=== PATIENT | male | born 1985 | race Caucasian/White ===

== ENCOUNTER → 2016-06-11 | Outpatient (CLI) | payer BC, OTHER ==
[2016-06-11 12:40] LABS: BASO % 0.3 %; BASO ABS # 0.02 K/uL (0-0.2); COMPLETE YES; HEMATOCRIT 43.1 % (42-52); IG% 0.2 %; LYMPH % 27.2 %; LYMPH ABS # 1.58 K/uL (1.2-3.4); MEAN CORPUSCULAR HEMOGLOBIN 28.9 pg (25-34); MEAN CORPUSCULAR HGB CONC 33.6 g/dl (32-36); MEAN PLATELET VOLUME 11.4 fL (7.4-10.4); MONO % 10.2 %; NEUT % 61.1 %; PLATELET COUNT 187 K/uL (130-400); RED BLOOD COUNT 5.01 M/uL (4.7-6.1)
[2016-06-11 13:21] LABS: ALT/SGPT 37 U/L (12-78); BLOOD UREA NITROGEN 19 mg/dl (7-18); BUN/CREATININE RATIO 28.7 (10-20); CALCIUM 8.6 mg/dl (8.5-10.1); CARBON DIOXIDE 30 mmol/L (21-32); CHLORIDE 106 mmol/L (98-107); CHOLESTEROL 126 mg/dl (0-200); CREATININE 0.67 mg/dl (0.60-1.40); GLUCOSE 93 mg/dl (70-99); POTASSIUM 3.7 mmol/L (3.5-5.1); SODIUM 141 mmol/L (136-145); TRIGLYCERIDES 83 mg/dl (0-150); VERY LOW DENSITY LIPOPROT CALC 17 mg/dl
[2016-06-11 13:24] LABS: ALB/GLOB RATIO 1.1 (0.9-2); ALKALINE PHOSPHATASE 60 U/L (45-117); AST/SGOT 17 U/L (15-37); CHOLESTEROL/HDL RATIO 2.7; HDL CHOLESTEROL 46 mg/dl; LDL CHOLESTEROL CALCULATED 63 mg/dl
== END | disposition home or self-care (01) ==
LOC: C.LAB 10:13
PROVIDERS: ATTEND Nurse Practitioner Family
DX: Z00.00 Encounter for general adult medical examination without abnormal findings (principal); N31.9 Neuromuscular dysfunction of bladder, unspecified; G80.9 Cerebral palsy, unspecified; Q05.9 Spina bifida, unspecified; Z13.220 Encounter for screening for lipoid disorders

== ENCOUNTER → 2017-01-16 | Outpatient (CLI) | payer OTHER ==
--- NOTE | 2017-01-16 12:03 | DIAGNOSTIC IMAGING REPORT ---
RENAL ULTRASOUND CLINICAL HISTORY: Neurogenic bladder. Urinary incontinence. COMPARISON STUDY: Renal ultrasound January 16, 2016. TECHNIQUE: Sonography of the kidneys and the urinary bladder was performed. FINDINGS: Exam is compromised by suboptimal penetration. The right kidney measures 10.5 x 5 x 4.4 cm and the left measures 11.4 x 6.4 x 5.1 cm. There is no hydronephrosis. Renal echogenicity, size and cortical thickness are normal. As before, the bladder wall is irregular and trabeculated. This is unchanged. IMPRESSION: 1. Normal sonographic appearance of the kidneys. No hydronephrosis. 2. No change in the irregular trabeculated bladder wall consistent with the history of neurogenic bladder. Electronically signed by: Sami Smith M.D. 01/16/2017 12:02 PM Dictated Date/Time: 01/16/2017 12:00 PM
== END | disposition home or self-care (01) ==
LOC: C.ULTR 11:27
PROVIDERS: ATTEND Urology
DX: R32 Unspecified urinary incontinence (principal)

== ENCOUNTER → 2017-05-01 | Outpatient (CLI) | payer OTHER | END | disposition home or self-care (01) | LOC: C.LAB 17:08 | PROVIDERS: ATTEND Nurse Practitioner Family | DX: L03.115 Cellulitis of right lower limb (principal) ==

== ENCOUNTER → 2017-06-25 | Outpatient (CLI) | payer BC, OTHER ==
[2017-06-25 13:07] LABS: ALBUMIN 3.8 gm/dl (3.4-5.0); ALT/SGPT 48 U/L (12-78); AST/SGOT 21 U/L (15-37); BLOOD UREA NITROGEN 24 mg/dl (7-18); CALCIUM 8.7 mg/dl (8.5-10.1); CARBON DIOXIDE 29 mmol/L (21-32); CREATININE 0.78 mg/dl (0.60-1.40); GLUCOSE 87 mg/dl (70-99); POTASSIUM 3.7 mmol/L (3.5-5.1); SODIUM 137 mmol/L (136-145)
[2017-06-25 13:10] LABS: ALKALINE PHOSPHATASE 63 U/L (45-117); CHOLESTEROL 138 mg/dl (0-200); LDL CHOLESTEROL CALCULATED 74 mg/dl; TOTAL PROTEIN 7.7 gm/dl (6.4-8.2)
== END | disposition home or self-care (01) ==
LOC: C.LAB 10:27
PROVIDERS: ATTEND Nurse Practitioner Family
DX: Z00.00 Encounter for general adult medical examination without abnormal findings (principal); Z13.1 Encounter for screening for diabetes mellitus; Z13.220 Encounter for screening for lipoid disorders

== ENCOUNTER 2018-10-11 23:35 | Inpatient (IN) ==
[2018-10-12 00:02] LABS: Basophils # (auto) 0.03 K/uL (0-0.2); Basophils % (auto) 0.3 %; Eosinophils # (auto) 0.01 K/uL (0-0.5); Eosinophils % (auto) 0.1 %; Hematocrit (blood only) 44.5 % (42-52); Hemoglobin 15.6 g/dL (14.0-18.0); Immature Granulocytes # (auto) 0.03 K/uL (0.00-0.02); Immature Granulocytes % (auto) 0.3 %; Lymphocytes % (auto) 12.8 %; Mean Corpuscular Hgb Conc 35.1 g/dL (32-36); Mean Corpuscular Volume 85.4 fL (80-100); Mean Platelet Volume 11.5 fL (7.4-10.4); Monocytes # (auto) 0.41 K/uL (0.11-0.59); Monocytes % (auto) 3.5 %; Neutrophils # (auto) 9.77 K/uL (1.4-6.5); Platelet Count 218 K/uL (130-400); RDW Coefficient of Variation 13.6 % (11.5-14.5); RDW Standard Deviation 42.4 fL (36.4-46.3); Red Blood Count 5.21 M/uL (4.7-6.1); White Blood Count 11.75 K/uL (4.8-10.8)
[2018-10-12 00:17] LABS: D Dimer < 190 ug/L FEU (0-500)
[2018-10-12 00:19] LABS: Alanine Aminotransferase 39 U/L (12-78); Albumin Level 4.4 gm/dl (3.4-5.0); Aspartate Aminotransferase 20 U/L (15-37); BUN Creatinine Ratio 21.2 (10-20); Bilirubin Direct < 0.1 mg/dl (0-0.2); Blood Urea Nitrogen 17 mg/dl (7-18); Calcium 8.9 mg/dl (8.5-10.1); Carbon Dioxide 30 mmol/L (21-32); Chloride 104 mmol/L (98-107); Est GFR (African American) 134.7; Est GFR (Non-African American) 116.2; Glucose 107 mg/dl (70-99); Potassium 3.6 mmol/L (3.5-5.1); Sodium 141 mmol/L (136-145)
[2018-10-12 00:24] LABS: Alkaline Phosphatase 68 U/L (45-117); Bilirubin,Total 0.2 mg/dl (0.2-1); Total Protein 8.3 gm/dl (6.4-8.2); Troponin I < 0.015 ng/ml (0-0.045)
[2018-10-12] MEDS ORDERED: MoRPHine SULFATE 10 MG/ML CARP/VIAL IV STA (00:37)
[2018-10-12 01:17] LABS: Appearance Urine Cloudy (Clear); Bacteria Urine Automated Negative (Negative); Bilirubin Urine Negative (Negative); Blood Urine Negative (Negative); Color Urine Yellow; Epithelial Cell Urine Auto 20-30 /lpf (0-5); Glucose Urine UA Negative (Negative); Ketones Urine 1+ (Negative); Leukocyte Esterase Urine 1+ (Negative); Nitrite Urine Negative (Negative); RBC Urine Automated 0-4 /hpf (0-4); Specific Gravity Urine 1.026 (1.000-1.030); Urobilinogen Urine Negative (Negative)
[2018-10-12 01:31] LABS: Protein Urine Negative (Negative)
[2018-10-12] MEDS ORDERED: IOVERSOL 100ml IV PRN (01:51)
--- NOTE | 2018-10-12 03:50 | Emergency Department Note ---
Entered by Nacho Zhang acting as a scribe for Brody Alvarez MD ED Provider Note Name: Jack Spring Age: 32, male Arrives Via: EMS Informant: Patient CC: Abdominal pain HPI: The patient is a 32 year old male who presents to the emergency department with complaints of constant RUQ abdominal pain beginning at 2030 tonight. The patient states that his abdominal pain started randomly tonight and radiated into his center chest. He notes that his chest pain felt like a burning, but he reports that his chest pain has since resolved. He also complains of vomiting and some dyspnea. The patient states that his abdominal pain causes him pain when he breathes in. He notes that he was given 100mcg of Fentanyl and 15mg of Toradol in the ambulance which relieved some of his symptoms. He rates his current pain as a 5/10. He denies any fever, chills, back pain, headache, neck pain, shoulder pain, cough, and recent falls. He reports that he has a history of spina bifida and reflux, but he states that he has not had any recent UTIs. He denies any cigarettes and drug use, but he notes that he occasionally drinks alcohol. ROS: See above HPI for pertinent positives & negatives. A total of 10 systems reviewed and were otherwise negative. Past Medical History: Spina bifida, reflux Past Surgical History: None Family History: None Social History: Unemployed, does not smoke cigarettes, does not use drugs, occasionally drinks alcohol Home Medications: None Allergies: Latex Physical: Vitals: BP 176/98, Pulse 77, Resp 16, Temp 98.2 F, O2 Sat 96 Exam: GENERAL: Patient is well appearing and in minimal distress. EYES: No scleral icterus, unremarkable pupils. ENT: Mucous membranes moist, no nasal congestion. NECK: No masses appreciated, no meningismus, trachea is midline. RESPIRATORY: No dyspnea. Clear to auscultation and equal bilaterally. No wheeze, no rhonchi. CARDIOVASCULAR: Regular rate and rhythm. No murmurs, rubs, gallops appreciated. GASTROINTESTINAL: Abdomen soft, no peritonitis. Bowel sounds positive. No masses appreciated. Mild RUQ tenderness, upper right abdominal scar from childhood consistent with possible pyloric stenosis surgery. BACK: No midline tenderness, no CVA tenderness EXTREMITIES: No cyanosis, no edema, minimal movement of legs, normal movement of the upper extremities. NEUROLOGIC: Alert and oriented, minimal movement of legs consistent with spina bifida, no sensation in legs, upper extremities are normal. SKIN: No rash, no jaundice, no diaphoresis. ED Course: Prior Medical Record, Triage/Nursing Notes, Medications, Allergies reviewed by Me 2340: The patient was evaluated in room B11. A complete history and physical exam was performed. 0020: I reevaluated and updated the patient. He states that he is having more pain, but he declines pain medication at this time. His mother called in and nursing spoke to her. The patients mother notes that she and the patients father are on their way from vacation and will arrive in 4.5 hours. 0037: I rechecked the patient. [place] is back [place]. He notes that his pain is starting to increase again. 0127: I reevaluated and updated the patient. He still has some RUQ pain and is agreeable to CT scan. 0247: I spoke on the phone with the patient's mother per his request. The patient is still having pain but denies any medication. 0253: Dr. Leach - Hospitalist, [facility], was paged. 0257: Upon reevaluation, the patient is stable. I discussed the findings and the treatment plan with the patient. He expresses agreement and understanding. I spoke with Dr. Leach of the [facility] Hospitalist Service. The patient will be evaluated for further management. Vital Signs: reviewed and remarkable for wnl Labs: Reviewed and remarkable for wnl Interventions: saline lock, fentanyl 100mcg IV, Morphine 8mg IV, NSS bolus Imaging: Radiology results as stated below per my review and the radiologist's interpretation: US GALLBLADDER: Pancreas obscured by bowel gas. Diffuse increased echogenicity of the liver can be seen with hepatic steatosis or other hepatocellular disease. Main portal vein is patent. Mobile appearing gallstones measuring around 9mm nondistended gallbladder without pericholecystic free fluid. Wall measures 2mm. Report of a negative sonographic Sumner sign. No right hydronephrosis or free fluid seen. CBD 5mm. Radiologist: Ridge Dacosta MD. CT ABDOMEN & PELVIS With Contrast: No prior CT. Comparison to recent ultrasound of the gallbladder. No appendicitis. Portion of the normal appendix seen image 55/2. Cholelithiasis. Gallbladder is distended. If there is persistent concern for cholecystitis, recommend correlation with HIDA, as indicated. Bladder has a thick-walled a ppearance. Some of this may relate to underdistention. Correlate for any evidence of cystitis. Suspected hepatic steatosis. No evidence for acute pancreatitis. Peritoneal catheter. Appears contained within the peritoneal cavity without percutaneous component. Portions of bowel including the distal c olon underdistended limiting evaluation for mural thickening. Moderate stool burden overall. No bowel obstruction. No perienteric inflammatory change. Postop changes spine/chronic skeletal deformities and other nonemergent/incidentals. Radiologist: Trenton Pond MD. EKG: Per My Interpretation: Indication Chest Pain: NSR 80 bpm qtc 442 without ectopy nor ischemia. Poor baseline. no previous for comparison. Consults: 0257: I reviewed the patient's case with Dr. Leach - Hospitalist, [facility]. He will evaluate the patient for further management. Blood pressure: Elevated - [place] to be Situation. Disposition: Hospitalization Differentials: Differential: Cholecystitis, Gallbladder disfunction, Hepatic Disfunction, Gastritis/PUD, Pancreatitis, ACS, Aortic Pathology, amongst other pathologies entertained. Medical Decision Makin yr old male with spina bifida arrives with acute RUQ pain and vomiting. Notes substernal cp s/p vomiting which has resolved by time of arrival. Exam with RUQ TTP. US with stones in GB without clear other issue. Continued pain thus CT done which shows normal appendix but distended gallbladder. Given persistent pain, stones in gallbladder and gallbladder distention likely would seem to have GB dysfunction. Reviewed with hospitalist who will bring in for furhter evaluation/management. With normal EKG/normal Trop and no further GB seems unlikely ACS. No PE symptoms. Aorta OK on CT. Impression: Dysfunctional gallbladder Brody Alvarez MD The scribe's documentation has been prepared under my direction and personally reviewed by me in its entirety. I confirm that the note above accurately reflects all work, treatment, procedures, and medical decision making performed by me. Impression & Plan Dysfunctional gallbladder Past Med/Surg History Medical History Neurogenic bladder (Acute) Spina bifida (Acute) Urinary incontinence (Acute) GERD (gastroesophageal reflux disease) Family History Other No significant family history Social History current occupational status: unemployed Feels Safe at Home: Yes Smoking Status: Never smoker Hx Alcohol Use: Yes Hx Substance Use: No Results & Data Vital Signs Vital Signs - 24 hr 10/11/18 23:41 10/12/18 00:42 10/12/18 01:01 Temperature 36.8 C Temperature Source Oral Sepsis Recent Fever Within 48 Hours No Sepsis Action Taken by Nursing No Action Required Pulse Rate 77 Pulse Rate [Right] 95 H 91 H Pulse Rhythm Regular Pulse Rhythm [Right] Pulse Strength Normal Pulse Strength [Right] Normal Respiratory Rate 16 16 18 Respiratory Effort / Characteristics Non-Labored Spontaneous Non-Labored Spontaneous Respiratory Depth Normal Normal Blood Pressure 176/98 H Blood Pressure [Right Arm] 170/95 H 151/85 H Blood Pressure Mean 124 Blood Pressure Mean [Right Arm] 120 107 Blood Pressure Position Lying Blood Pressure Position [Right Arm] Sitting Pulse Oximetry 96 98 95 Oxygen Delivery Method Room Air Room Air Room Air 10/12/18 01:53 10/12/18 02:50 Temperature Temperature Source Sepsis Recent Fever Within 48 Hours Sepsis Action Taken by Nursing Pulse Rate Pulse Rate [Right] 90 90 Pulse Rhythm Pulse Rhythm [Right] Regular Regular Pulse Strength Pulse Strength [Right] Normal Normal Respiratory Rate 18 16 Respiratory Effort / Characteristics Non-Labored Spontaneous Non-Labored Spontaneous Respiratory Depth Normal Normal Blood Pressure Blood Pressure [Right Arm] 151/85 H 138/95 Blood Pressure Mean Blood Pressure Mean [Right Arm] 107 109 Blood Pressure Position Blood Pressure Position [Right Arm] Sitting Sitting Pulse Oximetry 98 99 Oxygen Delivery Method Room Air Room Air Home Medications Current Medication List: was personally reviewed by me Laboratory Data Attestation: I reviewed the patient's lab results. Result diagrams: 10/11/18 23:05 10/11/18 23:05 Lab Results 10/11/18 10/11/18 10/11/18 Range/Units 23:05 23:05 23:05 WBC 11.75 H (4.8-10.8) K/uL RBC 5.21 (4.7-6.1) M/uL Hgb 15.6 (14.0-18.0) g/dL Hct 44.5 (42-52) % MCV 85.4 (80-100) fL MCH 29.9 (25-34) pg MCHC 35.1 (32-36) g/dL RDW Std Deviation 42.4 (36.4-46.3) fL RDW Coeff of Sumi 13.6 (11.5-14.5) % Plt Count 218 (130-400) K/uL MPV 11.5 H (7.4-10.4) fL Immature Gran % (Auto) 0.3 % Neut % (Auto) 83.0 % Lymph % (Auto) 12.8 % [place] % (Auto) 3.5 % Eos % (Auto) 0.1 % Baso % (Auto) 0.3 % Immature Gran # (Auto) 0.03 H (0.00-0.02) K/uL Neut # (Auto) 9.77 H (1.4-6.5) K/uL Lymph # (Auto) 1.50 (1.2-3.4) K/uL [place] # (Auto) 0.41 (0.11-0.59) K/uL Eos # (Auto) 0.01 (0-0.5) K/uL Baso # (Auto) 0.03 (0-0.2) K/uL D-Dimer < 190 (0-500) ug/L FEU Sodium 141 (136-145) mmol/L Potassium 3.6 (3.5-5.1) mmol/L Chloride 104 (98-107) mmol/L Carbon Dioxide 30 (21-32) mmol/L Anion Gap 7.0 (3-11) BUN 17 (7-18) mg/dl Creatinine 0.82 (0.6-1.4) mg/dl Est Cr Clr Drug Dosing Not Reportable Est GFR ( Amer) 134.7 Est GFR (Non-Af Amer) 116.2 BUN/Creatinine Ratio 21.2 H (10-20) Glucose 107 H (70-99) mg/dl Calcium 8.9 (8.5-10.1) mg/dl Total Bilirubin 0.2 (0.2-1) mg/dl Direct Bilirubin < 0.1 (0-0.2) mg/dl AST 20 (15-37) U/L ALT 39 (12-78) U/L Alkaline Phosphatase 68 (45-117) U/L Troponin I < 0.015 (0-0.045) ng/ml Total Protein 8.3 H (6.4-8.2) gm/dl Albumin 4.4 (3.4-5.0) gm/dl Lipase 153 (73-393) U/L Urine Color Urine Appearance (Clear) Urine pH (4.5-7.5) Ur Specific [place] (1.000-1.030) Urine Protein (Negative) Urine Glucose (UA) (Negative) Urine Ketones (Negative) Urine Blood (Negative) Urine Nitrite (Negative) Urine Bilirubin (Negative) Urine Urobilinogen (Negative) Ur Leukocyte Esterase (Negative) Urine WBC (Auto) (0-5) /hpf Urine RBC (Auto) (0-4) /hpf U Hyaline Cast (Auto) (0-5) /lpf U Epithel Cells (Auto) (0-5) /lpf Urine Bacteria (Auto) (Negative) 10/12/18 Range/Units 01:00 WBC (4.8-10.8) K/uL RBC (4.7-6.1) M/uL Hgb (14.0-18.0) g/dL Hct (42-52) % MCV (80-100) fL MCH (25-34) pg MCHC (32-36) g/dL RDW Std Deviation (36.4-46.3) fL RDW Coeff of Sumi (11.5-14.5) % Plt Count (130-400) K/uL MPV (7.4-10.4) fL Immature Gran % (Auto) % Neut % (Auto) % Lymph % (Auto) % [place] % (Auto) % Eos % (Auto) % Baso % (Auto) % Immature Gran # (Auto) (0.00-0.02) K/uL Neut # (Auto) (1.4-6.5) K/uL Lymph # (Auto) (1.2-3.4) K/uL [place] # (Auto) (0.11-0.59) K/uL Eos # (Auto) (0-0.5) K/uL Baso # (Auto) (0-0.2) K/uL D-Dimer (0-500) ug/L FEU Sodium (136-145) mmol/L Potassium (3.5-5.1) mmol/L Chloride (98-107) mmol/L Carbon Dioxide (21-32) mmol/L Anion Gap (3-11) BUN (7-18) mg/dl Creatinine (0.6-1.4) mg/dl Est Cr Clr Drug Dosing Est GFR ( Amer) Est GFR (Non-Af Amer) BUN/Creatinine Ratio (10-20) Glucose (70-99) mg/dl Calcium (8.5-10.1) mg/dl Total Bilirubin (0.2-1) mg/dl Direct Bilirubin (0-0.2) mg/dl AST (15-37) U/L ALT (12-78) U/L Alkaline Phosphatase (45-117) U/L Troponin I (0-0.045) ng/ml Total Protein (6.4-8.2) gm/dl Albumin (3.4-5.0) gm/dl Lipase (73-393) U/L Urine Color Yellow Urine Appearance Cloudy A (Clear) Urine pH 8.0 H (4.5-7.5) Ur Specific [place] 1.026 (1.000-1.030) Urine Protein Negative (Negative) Urine Glucose (UA) Negative (Negative) Urine Ketones 1+ H (Negative) Urine Blood Negative (Negative) Urine Nitrite Negative (Negative) Urine Bilirubin Negative (Negative) Urine Urobilinogen Negative (Negative) Ur Leukocyte Esterase 1+ H (Negative) Urine WBC (Auto) 10-30 H (0-5) /hpf Urine RBC (Auto) 0-4 (0-4) /hpf U Hyaline Cast (Auto) 1-5 (0-5) /lpf U Epithel Cells (Auto) 20-30 H (0-5) /lpf Urine Bacteria (Auto) Negative (Negative) Administered Medications Ioversol (Optiray 320 100ml) 94 ml IV ONCE PRN PRN Reason: Interaction Checking Stop: 10/16/18 01:50 Last Admin: 10/12/18 01:52 Dose: 94 ml Documented by: [id number] Discontinued Medications Morphine Sulfate (Morphine Sulfate) 8 mg IV NOW STA Stop: 10/12/18 00:38 Last Admin: 10/12/18 00:42 Dose: 8 mg Documented by: [id number] Discharge Plan Visit Data Chief Complaint: Abdominal Pain Stated Complaint: ABDOMINAL PAIN ED Provider: Brody Alvarez Discharge Problem: Dysfunctional gallbladder Patient Disposition: Being Evaluated by Hospitalist Forms Stand Alone Forms: Call Back Authorization, [facility] [place] Prescriptions Prescriptions: No Action miscellaneous medical supply pad .ROUTE .MEDSUPPLY Qty: 1 RF: 0 Referrals Referrals: Danny Truong III, [place] [Primary Care Provider] - The scribe's documentation has been prepared under my direction and personally reviewed by me in its entirety. I confirm that the note above accurately reflects all work, treatment, procedures, and medical decision making performed by me.
--- NOTE | 2018-10-12 04:12 | History & Physical Report ---
Date of Service October 12, 2018 Assessment & Plan (1) RUQ abdominal pain: 32-year-old male was admitted on 12 October 2018 for right upper quadrant abdominal pain and gallstones. Abdominal pain: Acute onset around 2029 on evening of admission. Describes concurrent RUQ and feeling of acid reflux. During this H&P, symptoms virtually resolved after pain medication. Presently non-tender throughout abdomen. Unclear if this is all gallbladder related versus some mild exacerbation of GERD. - In ED, afebrile, not tachycardic, moderately hypertensive, with normal room SpO2. WBC 11. Electrolytes, LFTs, lipase, and troponin normal. EKG is NSR rate 80. UA is dirty specimen. Urine culture sent. Overnight read of gallbladder ultrasound notes a mobile appearing 9 mm gallstone with non- distended gallbladder, no pericholecystic free fluid, GB wall 2 mm and CBD 5 mm. Overnight read of CT a/p with contrast notes distended gallbladder and cholelithiasis. - In ED, pain treated with morphine. - Will consult GI for further evaluation and consideration of HIDA scan. Tylenol and Zofran as needed for pain and nausea control. We will try to avoid further narcotics for now. Incidental CT a/p with contrast findings: - Suspected hepatic steatosis. - Peritoneal catheter. - Moderate stool burden overall without obstruction. - Chronic skeletal deformities. Ongoing medical issues: - Spina bifida: Wheelchair dependent. - GERD: Takes Tums as needed at home. - Neurogenic bladder, urinary incontinence. Code status: Full code. Diet: Full liquid diet. Likely will need to be n.p.o. for at least 4 hours before a HIDA scan. DVT prophy: Lovenox. PT/OT: Deferred. Disbo: Admit to MedSurg. (2) Spina bifida: (3) GERD (gastroesophageal reflux disease): (4) Neurogenic bladder: (5) Urinary incontinence: History of Present Illness Primary Care Provider: Danny Truong III, LLOY[place] 32-year-old male presents to ED via EMS stating that he had the acute onset of RUQ regional pain beginning around 2029 this evening. He notes concurrent feeling of acid reflux in the center of his chest, bad taste in his mouth, as well as nausea and two episodes of non-bloody emesis. He denies any diarrhea and says he has regular bowel movements. He also denies any previous history of similar abdominal pains or known intestinal/gallbladder issues. At the time of this H&P, patient has received fentanyl 100 mcg, Toradol 15 mg, and morphine 8 mg IV. He presently states he no longer has any abdominal pain but does have some residual "soreness" [pointing to] in his RUQ. Denies any present nausea as well and says that he is hungry. Otherwise denies any other acute concerns. - Past medical history includes spina bifida and reflux. - Past surgical history includes spinal fusion, CEMENT SACK BREAKER shunt and shunt revision, hip surgery, pyloric stenosis repair as child. - Social history includes denying tobacco use. Occasional alcohol use. Denies illicit drug use. Unemployed. Allergies Allergy/AdvReac Type Severity Reaction Status Date / Time Latex Exam Gloves MISC Allergy Severe Unknown Uncoded 10/12/18 00:29 Latex2 -Systemic Allergic Allergy Unknown Could not Uncoded 10/12/18 00:29 Response breath Home Medications Home Medications Medication Instructions Recorded Confirmed Type miscellaneous medical supply pads #1 ea 10/06/18 10/12/18 Rx Past Med/Surg History Medical History Neurogenic bladder (Acute) Spina bifida (Acute) Urinary incontinence (Acute) GERD (gastroesophageal reflux disease) Surgical History S/P CEMENT SACK BREAKER shunt Family History Other No significant family history Social History Preferred Language: Turkish Communication Ability: Effective Molder Required: No Beliefs That Will Affect Care: None Current Living Situation: Parent current occupational status: unemployed Feels Safe at Home: Yes Safety Concerns: Feels Safe At This Time Smoking Status: Never smoker Hx Alcohol Use: Yes Alcohol type: beer, wine and hard liquor Hx Substance Use: No Review of Systems Review of Systems: Constitutional: Denies fevers, chills, focal weakness Eyes: Denies any visual loss or diplopia ENT: Denies any ear/nose/throat pain or difficulty speaking or swallowing Respiratory: Denies any dyspnea, cough, hemoptysis Cardiovascular: Denies any chest pain or feeling of edema Gastrointestinal: Positive abdominal pain and nausea/vomiting. Denies diarrhea. Musculoskeletal: Denies any acute extremity pains, myalgias, or focal weakness (but chronic spina bifida issues). Skin: Denies any known acute rashes or lesions Neuro: Denies any headache, acute focal weakness or numbness, or difficulties with speech or swallow. Physical Exam Physical Exam: GENERAL: Awake, alert, well-appearing, in no acute distress. HENT: Normocephalic, atraumatic. Oropharynx unremarkable. EYES: Normal conjunctiva. Sclera non-icteric. NECK: Inspection normal. Supple and full ROM. No nuchal rigidity. CARDIAC: +S1S2 RRR, no murmurs. RESPIRATORY: Clear to auscultation. No wheezes or rales. Normal respiratory effort. GI: +BS, soft, non-distended. No tenderness to palpation throughout, including RUQ. No rebound or guarding. Well-healed right upper abdominal scar (related to childhood pyloric stenosis surgery) NEURO / EXTREMITIES: No pedal edema. Limited movement and sensation of the bilateral lower extremities. Full and easy movement of bilateral upper extremities. Extensive surgical scarring of the lumbosacral spinal region. Results & Data Vital Signs (Past 12 Hours) Vital Signs Temp Pulse Pulse Resp BP BP Pulse Ox 10/12/18 02:50 90 16 138/95 99 10/12/18 01:53 90 18 151/85 H 98 10/12/18 01:01 91 H 18 151/85 H 95 10/12/18 00:42 95 H 16 170/95 H 98 10/11/18 23:41 36.8 C 77 16 176/98 H 96 Laboratory Results Laboratory Results WBC 11.75 K/uL (4.8-10.8) H 10/11/18 23:05 RBC 5.21 M/uL (4.7-6.1) 10/11/18 23:05 Hgb 15.6 g/dL (14.0-18.0) 10/11/18 23:05 Hct 44.5 % (42-52) 10/11/18 23:05 MCV 85.4 fL (80-100) 10/11/18 23:05 MCH 29.9 pg (25-34) 10/11/18 23:05 MCHC 35.1 g/dL (32-36) 10/11/18 23:05 RDW Std Deviation 42.4 fL (36.4-46.3) 10/11/18 23:05 RDW Coeff of Sumi 13.6 % (11.5-14.5) 10/11/18 23:05 Plt Count 218 K/uL (130-400) 10/11/18 23:05 MPV 11.5 fL (7.4-10.4) H 10/11/18 23:05 Immature Gran % (Auto) 0.3 % 10/11/18 23:05 Neut % (Auto) 83.0 % 10/11/18 23:05 Lymph % (Auto) 12.8 % 10/11/18 23:05 [place] % (Auto) 3.5 % 10/11/18 23:05 Eos % (Auto) 0.1 % 10/11/18 23:05 Baso % (Auto) 0.3 % 10/11/18 23:05 Immature Gran # (Auto) 0.03 K/uL (0.00-0.02) H 10/11/18 23:05 Neut # (Auto) 9.77 K/uL (1.4-6.5) H 10/11/18 23:05 Lymph # (Auto) 1.50 K/uL (1.2-3.4) 10/11/18 23:05 [place] # (Auto) 0.41 K/uL (0.11-0.59) 10/11/18 23:05 Eos # (Auto) 0.01 K/uL (0-0.5) 10/11/18 23:05 Baso # (Auto) 0.03 K/uL (0-0.2) 10/11/18 23:05 D-Dimer < 190 ug/L FEU (0-500) 10/11/18 23:05 Sodium 141 mmol/L (136-145) 10/11/18 23:05 Potassium 3.6 mmol/L (3.5-5.1) 10/11/18 23:05 Chloride 104 mmol/L (98-107) 10/11/18 23:05 Carbon Dioxide 30 mmol/L (21-32) 10/11/18 23:05 Anion Gap 7.0 (3-11) 10/11/18 23:05 BUN 17 mg/dl (7-18) 10/11/18 23:05 Creatinine 0.82 mg/dl (0.6-1.4) 10/11/18 23:05 Est Cr Clr Drug Dosing Not Reportable 10/11/18 23:05 Est GFR ( Amer) 134.7 10/11/18 23:05 Est GFR (Non-Af Amer) 116.2 10/11/18 23:05 BUN/Creatinine Ratio 21.2 (10-20) H 10/11/18 23:05 Glucose 107 mg/dl (70-99) H 10/11/18 23:05 Calcium 8.9 mg/dl (8.5-10.1) 10/11/18 23:05 Total Bilirubin 0.2 mg/dl (0.2-1) 10/11/18 23:05 Direct Bilirubin < 0.1 mg/dl (0-0.2) 10/11/18 23:05 AST 20 U/L (15-37) 10/11/18 23:05 ALT 39 U/L (12-78) 10/11/18 23:05 Alkaline Phosphatase 68 U/L (45-117) 10/11/18 23:05 Troponin I < 0.015 ng/ml (0-0.045) 10/11/18 23:05 Total Protein 8.3 gm/dl (6.4-8.2) H 10/11/18 23:05 Albumin 4.4 gm/dl (3.4-5.0) 10/11/18 23:05 Lipase 153 U/L (73-393) 10/11/18 23:05 Urine Color Yellow 10/12/18 01:00 Urine Appearance Cloudy (Clear) A 10/12/18 01:00 Urine pH 8.0 (4.5-7.5) H 10/12/18 01:00 Ur Specific [place] 1.026 (1.000-1.030) 10/12/18 01:00 Urine Protein Negative (Negative) 10/12/18 01:00 Urine Glucose (UA) Negative (Negative) 10/12/18 01:00 Urine Ketones 1+ (Negative) H 10/12/18 01:00 Urine Blood Negative (Negative) 10/12/18 01:00 Urine Nitrite Negative (Negative) 10/12/18 01:00 Urine Bilirubin Negative (Negative) 10/12/18 01:00 Urine Urobilinogen Negative (Negative) 10/12/18 01:00 Ur Leukocyte Esterase 1+ (Negative) H 10/12/18 01:00 Urine WBC (Auto) 10-30 /hpf (0-5) H 10/12/18 01:00 Urine RBC (Auto) 0-4 /hpf (0-4) 10/12/18 01:00 U Hyaline Cast (Auto) 1-5 /lpf (0-5) 10/12/18 01:00 U Epithel Cells (Auto) 20-30 /lpf (0-5) H 10/12/18 01:00 Urine Bacteria (Auto) Negative (Negative) 10/12/18 01:00 Medications Administered Ioversol (Optiray 320 100ml) 94 ml IV ONCE PRN PRN Reason: Interaction Checking Stop: 10/16/18 01:50 Last Admin: 10/12/18 01:52 Dose: 94 ml Documented by: [id number] Discontinued Medications Morphine Sulfate (Morphine Sulfate) 8 mg IV NOW STA Stop: 10/12/18 00:38 Last Admin: 10/12/18 00:42 Dose: 8 mg Documented by: [id number] Code Status & VTE Plan Code Status Full code VTE Prophylaxis Plan VTE Prophylaxis will be ordered: Yes Supervising Physician Co-Signing Physician Notes Attending addendum: I have physically seen this patient, have supervised the medical residents activities, and agree with the H&P unless as otherwise noted. Assessment and Plan: Right upper quadrant abdominal pain/intractable nausea and vomiting- Abdominal ultrasound and CT scan of abdomen and pelvis primarily noted distended gallbladder and cholelithiasis. NPO NSS + KCl 20 mEq at 100 mils per hour. Zofran 4 mg IV every 6 hours PRN. Famotidine 20 mg IV every 12 hours HIDA scan. Consult gastroenterology. Remainder of orders and notations as noted. PG Care Time/CCT Total # of Minutes Spent Total Time Spent with Patient: Total time spent is greater than 50% in coordination of care (as documented) at patient's floor/unit and/or counseling patient: Resident Activity Tracking Resident Involvement: Resident Care Provided Care Provided: Adult Hospital Medicine
[2018-10-12] MEDS ORDERED: ACETAMINOPHEN 325 MG TAB PO PRN (04:47)
[2018-10-12] MEDS ORDERED: ONDANSETRON INJ 2 MG/ML 2 ML VIAL IV PRN (04:47)
[2018-10-12] MEDS ORDERED: PATIENT S HEIGHT NEEDED SCH (05:00)
--- NOTE | 2018-10-12 05:55 | Ultrasound Report ---
US gallbladder CLINICAL HISTORY: 32 years-old Male presenting with RUQ abdominal Pain. TECHNIQUE: Real-time grayscale and limited color Doppler ultrasound imaging of the abdomen limited to the right upper quadrant was performed. COMPARISON: None. FINDINGS: Pancreas: Largely obscured due to overlying bowel gas. Liver: Moderately hyperechogenic parenchyma with partial obscuration of the right hemidiaphragm, like ly indicating moderate steatosis. The liver measures 16.3 cm in maximal sagittal dimension. No sonogr aphic evidence of hepatic mass. Main portal vein patent with normal directional flow. Biliary: No intrahepatic biliary ductal dilatation. Common bile duct measures up to 5 mm in diameter. Gallbladder: Gallstones with gallbladder distention possibly on a physiologic basis. No evidence of g allbladder wall thickening, or pericholecystic fluid or inflammatory change. Sonographic Joya's si gn negative. Right kidney: Normal in appearance without evidence of hydronephrosis. Ascites: None. Other: None. IMPRESSION: 1. Cholelithiasis with presumably physiologic gallbladder distention. No other convincing evidence o f cholecystitis. If there is persistent concern for cholecystitis, consider HIDA scan. 2. No biliary ductal dilatation. 3. Hepatic steatosis. Correlate with liver function tests to exclude steatohepatitis as a cause for abdominal pain. Electronically signed by: Jluis Mishra M.D. 10/12/2018 5:53 AM
--- NOTE | 2018-10-12 06:16 | CT Scan Report ---
CT abd pelvis IV con only CLINICAL HISTORY: 32 years-old Male presenting with right upper and lower quadrant pain, persistent, vomiting. TECHNIQUE: Multidetector CT of the abdomen and pelvis was performed after the administration of intra venous contrast. IV contrast: 94 mL of Optiray 320. One or more dose lowering techniques were used co nsistent with the principles of ALARA (as low as reasonably achievable), including automatic exposure control, mA or kV adjustment to individual patient size, and/or use of iterative reconstruction. COMPARISON: Right upper quadrant ultrasound performed earlier the same day. CT DOSE (mGy.cm): The estimated cumulative dose is 793.23 mGy.cm. FINDINGS: Assembly Leader topogram: Orthopedic hardware. Dysplasia of the hips. Lung bases: Normal heart size. No pericardial or pleural effusion. No focal infiltrate or nodule at t he lung bases. Liver: Normal morphology. Density suggestive of hepatic steatosis. No focal lesion. Patent hepatic va sculature. Biliary: No intrahepatic or extrahepatic biliary ductal dilatation. Gallbladder contains gallstones. The gallbladder is distended. No evidence of tension. No gallbladder wall thickening or pericholecyst ic fluid or inflammatory changes appreciated. Pancreas: Normal. Spleen: Normal. Adrenal glands: Normal. Kidneys and ureters: Normal. No hydronephrosis. Bladder: Diffuse wall thickening likely relates to a neurogenic bladder. Pelvic organs: Prostate and seminal vesicles normal. Bowel: Mild stool burden throughout normal caliber colon. The appendix is normal. No bowel obstructio n. Peritoneal cavity: A catheter is noted in the left abdomen, which appears intraperitoneal. There is n o extra-abdominal portion of this catheter evident. No free intraperitoneal gas or fluid. Lymph nodes: No enlarged lymph nodes in the abdomen or pelvis. Vasculature: Aorta and IVC patent and normal in caliber. Abdominal wall: Normal. Musculoskeletal: Extensive skeletal abnormalities, which are likely on a congenital basis with develo pmental dysplasia of the hips and thoracolumbar fusion hardware. IMPRESSION: 1. Cholelithiasis. Gallbladder presumably physiologically distended given the absence of tension, wa ll thickening, or pericholecystic fluid or inflammatory change. If there is concern for cholecystitis based on clinical symptoms, consider HIDA scan. 2. Intraperitoneal catheter fully contained within the peritoneal cavity. This is of uncertain etiol ogy or utility. Correlate with the patient's surgical history. 3. Neurogenic bladder. 4. 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 Electronically signed by: lJuis Mishra M.D. 10/12/2018 6:15 AM
[2018-10-12] MEDS: ENOXAPARIN INJ 40 MG/0.4 ML SYR SQ SCH (09:21)
--- NOTE | 2018-10-12 11:49 | Consultation Report ---
DATE OF CONSULTATION: 10/12/2018 REASON FOR EVALUATION: Gallstones and right upper quadrant pain. HISTORY OF PRESENT ILLNESS: The patient is a 32-year-old with spina bifida since , who presents with intense right upper quadrant pain that started around 8:00 p.m. last night. He rated it as about a 5/10. It did radiate into the chest briefly. Because of severity and duration of the symptoms, he presented to the Emergency Room last night. He underwent some blood tests which showed a white count of 11.75. Liver tests were normal. Ultrasound showed a couple of gallstones in his gallbladder, but no gallbladder wall thickening or pericholecystic fluid. His CT scan of the abdomen showed his liver to be hypodense consistent with fatty liver. He also had a ventriculoperitoneal shunt extending into the left side of the peritoneal cavity, but it was otherwise normal. Currently his pain is diminished. The question is whether he needs to have biliary scan for further evaluation. Of note is that the patient takes no aspirin or nonsteroidals. He has no history of ulcer disease, but does have a history of acid reflux. PAST MEDICAL HISTORY: Remarkable for spina bifida, status post multiple back operations with rods. He has a ventriculoperitoneal shunt that was placed during infancy that is embedded in the left lower quadrant of the abdomen. He also has a scar in the right upper abdomen from probable pyloric stenosis surgery as an . He also has neurogenic bladder. MEDICATIONS: Just medical supplies for spina bifida. ALLERGIES: LATEX. FAMILY HISTORY: Noncontributory. SOCIAL HISTORY: The patient is single. He is on disability, does not smoke, uses some alcohol. REVIEW OF SYSTEMS: Positive for his abdominal pain. The remainder is negative. PHYSICAL EXAMINATION: GENERAL: The patient is awake, alert, in no acute distress. VITAL SIGNS: Show blood pressure of 138/95, pulse 90, respirations 16, pulse ox on room air is 99%. MUSCULOSKELETAL: The patient has a scar from his cervical spine all the way to his lumbar spine. ABDOMEN: He has also left flank scar and a right upper quadrant scar. Abdomen is soft. There are no masses, tenderness, or Joya sign. LABORATORY DATA: Shows 10-30 white cells per high power field in his urine consistent with a probable UTI. Urine culture is pending. IMPRESSION AND PLAN: The patient has right upper quadrant pain, has a couple of gallstones in his imaging studies. I would recommend a biliary scan with ejection fraction to determine the function of his gallbladder. If this is abnormal, then I think elective cholecystectomy is warranted. If negative, then he may be a candidate for an EGD to look for any signs of ulcer disease, although he does not have any obvious risk factors.
--- NOTE | 2018-10-12 13:07 | History & Physical Bridge Note ---
Date of Service October 12, 2018 History & Physical Bridge Note I have examined the patient, reviewed the History & Physical and in the interval since the performance of the History & Physical I have noted the following changes of clinical significance: patient has improved, pain is minor, no further nausea or vomiting. All other systems reviewed and negative PE GENERAL: Awake, alert, well-appearing, in no acute distress.. EYES: Normal conjunctiva. Sclera non-icteric. CARDIAC: +S1S2 RRR, no murmurs. RESPIRATORY: Clear to auscultation. No wheezes or rales. Normal respiratory effort. GI: +BS, soft, non-distended. No tenderness to palpation throughout, including RUQ. No rebound or guarding. Plan: GI saw patient this morning and ordered a biliary scan with EF which will guide next steps: elective cholecystectomy vs EGD Will continue pain and nausea control. Avoid narcotics Enoxaparin for DVT proph
[2018-10-12] MEDS ORDERED: MoRPHine SULFATE 4 MG/ML 1 ML CARP\\VIAL IV PRN (13:46)
[2018-10-13] MEDS ORDERED: SINCALIDE 1.7 MCG in 0.9 % SODIUM CHLORIDE 100 ML IV SCH (08:30)
[2018-10-13] MEDS ORDERED: MoRPHine SULFATE 2 MG/ML CARP ONE (09:13)
--- NOTE | 2018-10-13 10:03 | Nuclear Medicine Report ---
NUCLEAR HEPATOBILIARY SCAN CLINICAL HISTORY: Right upper quadrant abdominal pain. Leukocytosis. COMPARISON STUDY: Abdominal CT and ultrasound dated 10/12/2018. . TECHNIQUE: Dynamic images of the liver and anterior abdomen were obtained every 5 minutes for a total of 60 minutes following the IV administration of 5.5mCi of technetium 99m Choletec. 2 mg of IV morph ine was administered at 60 minutes. Continued imaging was performed every 5 minutes 4 an additional 3 0 minutes. FINDINGS: The hepatobiliary scan shows prompt and homogeneous hepatic uptake. There is visualized act ivity within the intra and extrahepatic biliary tree at 10 minutes. There is normal biliary to bowel transit, with small bowel visualized by 15 minutes. The gallbladder was not visualized at 60 minutes . There was no gallbladder visualization by 90 minutes following morphine administration. IMPRESSION: Scintigraphic findings are consistent with acute cholecystitis. Electronically signed by: Sang Medina M.D. 10/13/2018 10:02 AM
--- NOTE | 2018-10-13 12:39 | Surgery Consultation ---
Date of Consultation October 13, 2018 Assessment & Plan (1) Acute cholecystitis: 32 year-old male with history of spina bifida and CLERK TYPIST shunt who presented to emergency department with RUQ abdominal pain and vomiting. Ultrasound and CT scan showing distended gallbladder with stones however no evidence of acute cholecystitis. HIDA scan today showed evidence of cystic duct obstruction consistent with acute cholecystitis. Mild leukocytosis on presentation, labs not repeated today. Abdomen completely benign, nontender in RUQ. Patient has been pain free for the past 24-36 hours. Plan: Discussed with patient and his mother (on the phone) HIDA scan results and usual indication for laparoscopic cholecystectomy compared to conservative approach with antibiotics give acute cholecystitis. However, given the presence of CLERK TYPIST shunt and the concern of increasing intracranial pressure with pneumoperitoneum created during laparoscopic approach and the fact that the patient is currently asymptomatic, afebrile, and pain free we discussed recommendation of conservative approach with course of antibiotics and close outpatient follow-up to discuss elective cholecystectomy likely at tertiary center given presence of CLERK TYPIST shunt. Advised to avoid fatty/greasy foods and to report back to emergency room if symptoms return. Mother originally concerned about needing any laparoscopic surgery given the CLERK TYPIST shunt and would want to have surgery at Tertiary center. Discussed recommendations with Dr. Resendiz Will provide patient/mother with our office number to schedule close outpatient follow-up. Dr. Whipple was present during consultation with patient and recommended above. (2) RUQ abdominal pain: Currently resolved HIDA scan showing acute cholecystitis, recommendations as above. History of Present Illness Reason for Consultation: Acute cholecystitis Requesting Physician: Enrique Resendiz Attending Physician: Enrique Resendiz History of Present Illness Jack is a pleasant 32 year-old male with history of spina bifida who is wheelchair dependant who presented to emergency department on Saturday with complaint of right upper sided abdominal pain with two episodes of vomiting and some reflux. He states he has never had this type of pain before. Had an abdominal ultrasound and CT scan of abdomen and pelvis in the emergency room which showed distended gallbladder likely physiological with gallstones however no gallbladder wall thickening or pericholecystic fluid. Labs showed mild leukocytosis of 11.75K. Afebrile. He was admitted to hospital and GI was consulted who recommended HIDA scan to further evaluate patients etiology of pain (biliary vs GERD/PUD). HIDA scan showing evidence of cystic duct obstruction without visualization of gallbadder in 90 minutes after Morphine administration. There was brisk uptake into the small intestine showing no evidence of CBD obstruction. Patient states he has been pain free for the past 24 hours. No fevers. No nausea or vomiting. Had clear liquids last night and tolerated without any pain. Vitals today are stable and afebrile. No labs repeated today. Allergies Allergy/AdvReac Type Severity Reaction Status Date / Time Latex Exam Gloves MISC Allergy Severe Unknown Uncoded 10/12/18 00:29 Latex2 -Systemic Allergic Allergy Unknown Could not Uncoded 10/12/18 00:29 Response breath Home Medications Home Medications Medication Instructions Recorded Confirmed Type miscellaneous medical supply pads #1 ea 10/06/18 10/12/18 Rx Patient History Medical History Neurogenic bladder (Acute) Spina bifida (Acute) Urinary incontinence (Acute) GERD (gastroesophageal reflux disease) Surgical History S/P CLERK TYPIST shunt Family History Other No significant family history Social History Preferred Language: [place] Communication Ability: Effective Ciaio Counter Molder Required: No Beliefs That Will Affect Care: None Current Living Situation: Parent current occupational status: unemployed Feels Safe at Home: Yes Safety Concerns: Feels Safe At This Time Smoking Status: Never smoker Hx Alcohol Use: Yes Alcohol type: beer, wine and hard liquor Hx Substance Use: No Review of Systems Review of Systems: All systems reviewed & are unremarkable except as noted in HPI & below Physical Exam Constitutional: WD/WN, vitals as above wheelchair bound Respiratory: normal respiratory effort; no respiratory distress, no labored breathing and no retractions Gastrointestinal (Abdomen): Inspection/Auscultation: abdomen normal to i nspection; abdomen not distended Percussion/Palpation: abdomen soft; abdomen nontender, no guarding and abdomen not rigid Skin: no rashes, warm and dry Psychiatric: A+Ox3, euthymic affect Results & Data Vital Signs (Past 12 Hours) Vital Signs Temp Pulse Pulse Resp BP Pulse Ox 10/13/18 10:04 37 C 98 H 18 150/90 H 97 10/13/18 08:00 37.0 C 94 H 18 152/86 H 96 Diagnostic Findings US gallbladder CLINICAL HISTORY: 32 years-old Male presenting with RUQ abdominal Pain. TECHNIQUE: Real-time grayscale and limited color Doppler ultrasound imaging of the abdomen limited to the right upper quadrant was performed. COMPARISON: None. FINDINGS: Pancreas: Largely obscured due to overlying bowel gas. Liver: Moderately hyperechogenic parenchyma with partial obscuration of the right hemidiaphragm, likely indicating moderate steatosis. The liver measures 16.3 cm in maximal sagittal dimension. No sonographic evidence of hepatic mass. Main portal vein patent with normal directional flow. Biliary: No intrahepatic biliary ductal dilatation. Common bile duct measures up to 5 mm in diameter. Gallbladder: Gallstones with gallbladder distention possibly on a physiologic basis. No evidence of gallbladder wall thickening, or pericholecystic fluid or inflammatory change. Sonographic Joya's sign negative. Right kidney: Normal in appearance without evidence of hydronephrosis. Ascites: None. Other: None. IMPRESSION: 1. Cholelithiasis with presumably physiologic gallbladder distention. No other convincing evidence of cholecystitis. If there is persistent concern for cholecystitis, consider HIDA scan. 2. No biliary ductal dilatation. 3. Hepatic steatosis. Correlate with liver function tests to exclude steatohepatitis as a cause for abdominal pain. NUCLEAR HEPATOBILIARY SCAN CLINICAL HISTORY: Right upper quadrant abdominal pain. Leukocytosis. COMPARISON STUDY: Abdominal CT and ultrasound dated 10/12/2018. . TECHNIQUE: Dynamic images of the liver and anterior abdomen were obtained every 5 minutes for a total of 60 minutes following the IV administration of 5.5mCi of technetium 99m Choletec. 2 mg of IV morphine was administered at 60 minutes. Continued imaging was performed every 5 minutes 4 an additional 30 minutes. FINDINGS: The hepatobiliary scan shows prompt and homogeneous hepatic uptake. There is visualized activity within the intra and extrahepatic biliary tree at 10 minutes. There is normal biliary to bowel transit, with small bowel visualized by 15 minutes. The gallbladder was not visualized at 60 minutes. There was no gallbladder visualization by 90 minutes following morphine administration. IMPRESSION: Scintigraphic findings are consistent with acute cholecystitis.
[2018-10-13] MEDS ORDERED: AMPICILLIN/SULBACTAM SOD 1,500 MG in 0.9 % SODIUM CHLORIDE 100 ML IV SCH (14:00)
--- NOTE | 2018-10-13 14:09 | Progress Note ---
DATE: 10/13/2018 The patient underwent a biliary scan this morning and it showed nonvisualization of the gallbladder even after 90 minutes and morphine. This is consistent with acute cholecystitis. The patient reports that his abdominal pain is diminished today. PHYSICAL EXAMINATION: VITAL SIGNS: Show blood pressure 150/90, pulse 98. He is afebrile with a temperature of 37. DATA: CBC was not drawn today. The patient was seen in surgical consultation and there was concern about doing an operation with a PERSONNEL OFFICER shunt in the left side of the abdomen and they were considering placing him on antibiotics for a while and following him. I discussed this approach with the PA and with Dr. Resendiz and I am concerned that his gallbladder might get infected and seed his bloodstream, which could seed his PERSONNEL OFFICER shunt and then might have a bigger problem and I am concerned about not removing the gallbladder despite the fact that his pain is improving. I talked to the patient and Dr. Resendiz will be talking to his mother and then we will likely try to arrange transfer to a tertiary care facility. In the meantime, I have ordered Unasyn to be given every 6 hours IV.
[2018-10-13] MEDS: ENOXAPARIN INJ 40 MG/0.4 ML SYR SQ SCH (14:30)
[2018-10-13 15:42] VITALS: BP 132/77; PULSE 84; TEMP 98.2; O2SAT 94
--- NOTE | 2018-10-13 15:54 | Discharge Summary ---
Date of Service date of admission - October 12, 2018 date of discharge - October 13, 2018 Admission HPI Per Admitting Provider 32-year-old male with history of spina bifida, neurogenic bladder, paraplegia, and prior HAIR SALON MANAGER shunt placement who presented to the ED via EMS stating that he had the acute onset of RUQ regional pain beginning around 2030 this evening. He notes concurrent feeling of acid reflux in the center of his chest, bad taste in his mouth, as well as nausea and two episodes of non-bloody emesis. He denies any diarrhea and says he has regular bowel movements. He also denies any previous history of similar abdominal pains or known intestinal/gallbladder issues. At the time of this H&P, patient has received fentanyl 100 mcg, Toradol 15 mg, and morphine 8 mg IV. He presently states he no longer has any abdominal pain but does have some residual "soreness" [pointing to] in his RUQ. Denies any present nausea as well and says that he is hungry. Otherwise denies any other acute concerns. Principal Diagnosis acute cholecystitis Discharge Exam Constitutional well developed and well nourished; no acute distress and no altered mental status ENMT external ear and nose normal, oropharynx normal Respiratory normal respiratory effort, lungs clear to auscultation Cardiovascular Rate/Rhythm: regular rate and regular rhythm Heart Sounds: normal S1 and normal S2; no murmur Vessels: no JVD Extremities: + edema (<1+ b/l) Gastrointestinal (Abdomen) normal bowel sounds, soft, nontender, no hepatosplenomegaly Skin no jaundice mild venous stasis changes b/l legs Neurologic paraplegia of legs; atrophy of legs noted Psychiatric A+Ox3, euthymic affect Discharge Data Allergies Allergy/AdvReac Type Severity Reaction Status Date / Time Latex Exam Gloves MISC Allergy Severe Unknown Uncoded 10/12/18 00:29 Latex2 -Systemic Allergic Allergy Unknown Could not Uncoded 10/12/18 00:29 Response breath Consultations 1. [facility] Gastroenterology - Akil Mendenhall MD 2. General Surgery - Joanne Whipple MD Ordered Studies 1. CT abd/pelvis - IMPRESSION: 1. Cholelithiasis. Gallbladder presumably physiologically distended given the absence of tension, wall thickening, or pericholecystic fluid or inflammatory change. If there is concern for cholecystitis based on clinical symptoms, consider HIDA scan. 2. Intraperitoneal catheter fully contained within the peritoneal cavity. This is of uncertain etiology or utility. Correlate with the patient's surgical history. 3. Neurogenic bladder. 4. 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 2. u/s gall bladder - IMPRESSION: 1. Cholelithiasis with presumably physiologic gallbladder distention. No other convincing evidence of cholecystitis. If there is persistent concern for cholecystitis, consider HIDA scan. 2. No biliary ductal dilatation. 3. Hepatic steatosis. Correlate with liver function tests to exclude steatohepatitis as a cause for abdominal pain. 3. HIDA scan - FINDINGS: The hepatobiliary scan shows prompt and homogeneous hepatic uptake. There is visualized activity within the intra and extrahepatic biliary tree at 10 minutes. There is normal biliary to bowel transit, with small bowel visualized by 15 minutes. The gallbladder was not visualized at 60 minutes. There was no gallbladder visualization by 90 minutes following morphine administration. IMPRESSION: Scintigraphic findings are consistent with acute cholecystitis. Hospital Course (1) Acute cholecystitis: The patient's presenting GI symptoms were concerning for biliary tract pathology. CT abd/pelvis and gall bladder u/s both showed gallstones and mild gall bladder distension. HIDA scan revealed findings suggestive of acute cholecystitis. IV antibiotics were ultimately started after imaging was suggestive of acute cholecystitis. LFTs throughout his brief stay were normal. He remained afebrile. He did not have recurrent RUQ abdominal pain following admission. Both GI and general surgery were consulted. In light of his HAIR SALON MANAGER shunt status general surgery felt it would be best for him to undergo his cholecystectomy at a tertiary care center. [facility] was contacted, and Dr Cassie Gomez from general surgery accepted Mr Spring in transfer for ongoing care. (2) Spina bifida: Chronic, long-standing, with resulting paraplegia leading to wheelchair dependence. s/p HAIR SALON MANAGER shunt as child. HAIR SALON MANAGER shunt remains but is non-functioning. (3) GERD (gastroesophageal reflux disease): Does not take chronic medications for this. (4) Neurogenic bladder: Patient has not been self-cathing at home. He continues to void spontaneously. Urine culture was negative for UTI. (5) Urinary incontinence: Chronic, 2nd to neurogenic bladder from spina bifida. (6) Paraplegia: 2nd to spina bifida. I would like to thank Dr Cassie Gomez at [facility] for accepting Mr Spring in transfer for ongoing care. Total Time Total Time Spent Total Time Spent (In Minutes): 45 Total Time Includes: Examination of the Patient, Discharge Planning, Medication Reconciliation and Communication With Other Providers (GI, general surgery) Discharge Plan Discharge Items Patient Disposition: Transfer Acute Care Hospital Reason For Visit: RUQ PAIN, GALLSTONES Discharge Diagnosis: acute cholecystitis. HAIR SALON MANAGER shunt. Spina Bifida. Discharge Goals: Decrease discomfort and Therapeutic intervention Activity: Resume your previous activity Non-emergency contact: Primary Care Provider and Surgeon Call non-emergency contact if: you have any medication questions, your symptoms worsen, your pain is not controlled and your temperature is above 100.5 Follow-up/Referrals: Danny Truong III, CRNP [Primary Care Provider] - Diet: Full liquid Addtl Provider Instructions: You were diagnosed with suspected acute cholecystitis. This was the likely cause of your abdominal pain at home prior to coming to the hospital. We have recommended removal of your gall bladder. You are transferring to [facility] for consideration of cholecystectomy (removal of gall bladder). Prescriptions: Continued miscellaneous medical supply pad .ROUTE .MEDSUPPLY Qty: 1 RF: 0 Stand-Alone Forms: Call Back Authorization, [facility] Discharge Orders: Discharge Order (Routine); Ordered 10/13/18 Ordered By: Enrique Resendiz Admission Data Admit Date/Time: 10/12/18 04:07 Attending Provider: Enrique Resendiz Admit Provider: Marcus Upton Primary Care Provider: Danny Truong III Other Providers: Akil Mendenhall ; Abimael Pisano ; Joanne Whipple Service: Surgical Services
[2018-10-13] MEDS ORDERED: NSS + 20MEQ KCL 20 MEQ/1,000 ML BAG IV SCH (16:00)
== END 2018-10-13 18:45 | disposition short-term general hospital (02) | DRG 445 ==
LOC: ED 23:35 → SUATTDRO 10-12 04:07 → 3W 10-12 04:07